=== PATIENT | female | born 1990 | race African-American/Black ===

== ENCOUNTER 2020-04-15 17:38 | Emergency (ER) | payer SELFPAY ==
[~2020-04-15] VITALS: Ht 172.7 cm; Wt 100.0 kg
--- NOTE | 2020-04-15 17:57 | NUR ---
PT BIB EMS FOR SI. PT STATES "I WANT TO . ERICH HAD THESE THOUGHTS FOR YEARS. THE EASIEST WAY TO GO WOULD TO CATCH COVID19. I FEEL LIKE PEOPLE ARE CONTROLLING ME" PROVIDER IN WITH PT AT THIS TIME. TO BE PLACED ON LEGAL HOLD
--- NOTE | 2020-04-15 18:35 | NUR ---
BREAK RN: PT REFUSING LABS AND REQUESTING FOOD. PT EDUCATED ON NEED FOR LABWORK BEFORE FOOD FOR FULL EVALUATION OF MEDICAL CONDITIONS AND THAT IT IS A REQUEST FOR ALL ED PATIENTS. PT AGREES TO LAB WORK. URINE SAMPLE COLLECTED AND WALKED TO LAB. LAB NOTIFIED. [facility], PT RESTING IN [facility]. PT REQUESTING HOME MEDS - BACLOFEN
[2020-04-15] MEDS ORDERED: OLANZAPINE 10 MG TABLET ONE (18:41)
[2020-04-15] MEDS ORDERED: CYCLOBENZAPRINE 10 MG TABLET ONE (18:41)
[2020-04-15] MEDS: OLANZAPINE 10 MG TABLET PO SCH (18:44)
[2020-04-15] MEDS ORDERED: CYCLOBENZAPRINE 10 MG TABLET PO ONE (19:00)
[2020-04-15 19:08] LABS: AMPHETAMINE SCREEN, URINE Positive (Negative); BARBITURATE SCREEN, URINE Negative (Negative); BENZODIAZEPINE SCREEN, URINE Positive (Negative); CANNABINOID SCREEN, URINE Negative (Negative); COCAINE SCREEN, URINE Negative (Negative); METHADONE SCREEN, URINE Negative (Negative); OPIATE SCREEN, URINE Negative (Negative)
[2020-04-15 19:11] LABS: BASOPHILS % (AUTO) 1 % (0-1); EOSINOPHILS % (AUTO) 2 % (1-7); LYMPHOCYTES % (AUTO) 21 % (22-44); MEAN CORPUSCULAR HEMOGLOBIN 30.5 pg (27.0-34.8); MEAN CORPUSCULAR HGB CONC 32.5 g/dL (32.4-35.8); MEAN PLATELET VOLUME 9.2 fL (7.4-10.4); MONOCYTES % (AUTO) 8 % (2-9); NEUTROPHILS % (AUTO) 67 % (42-75); PLATELET COUNT 279 x10^3/uL (130-400); RED CELL DISTRIBUTION WIDTH 14.6 % (9.6-15.2)
[2020-04-15 19:22] LABS: ANION GAP 9 mmol/L (5-15); CALCIUM 8.8 mg/dL (8.5-10.1); CHLORIDE 108 mmol/L (98-107); SALICYLATE LEVEL 1.9 mg/dL (2.8-20.0)
[2020-04-15 19:28] LABS: ALANINE AMINOTRANSFERASE 129 U/L (12-78); ALKALINE PHOSPHATASE 104 U/L (45-117); BILIRUBIN,TOTAL 0.8 mg/dL (0.2-1.0); CREATININE 0.96 mg/dL (0.55-1.02); TOTAL PROTEIN 8.4 g/dL (6.4-8.2)
[2020-04-15 19:30] LABS: MD NO
--- NOTE | 2020-04-15 20:20 | NUR ---
REPORT FROM SALLY SHARMA. PT CARE ASSUMED.
--- NOTE | 2020-04-15 21:35 | NUR ---
PT RESTING IN BED, DENIES ANY CURRENT NEEDS OR CONCERNS. WILL CONTINUE TO MONITOR.
--- NOTE | 2020-04-15 23:36 | NUR ---
PT REQUESTING FOOD. COFFEE CART CLOSED AT THIS TIME. PT EDUCATED ON EXPECTED TIME TO RECEIVE FOOD. VERBALIZES UNDERSTANDING, DENIES ANY FURTHER NEEDS AT THIS TIME, SITTER CONTINUES IN DIRECT LINE OF SIGHT.
--- NOTE | 2020-04-16 00:31 | NUR ---
PT PROVIDED WITH MEAL PER REQUEST. DENIES ANY FURTHER NEEDS OR CONCERNS AT THIS TIME, SITTER CONTINUES IN DIRECT LINE OF SIGHT.
--- NOTE | 2020-04-16 00:32 | NUR ---
TJ RN: Patient self pay. Packet faxed to [facility].
--- NOTE | 2020-04-16 02:00 | NUR ---
PT SLEEPING, NAD NOTED. SITTER CONTINUES IN DIRECT LINE OF SIGHT.
--- NOTE | 2020-04-16 05:44 | NUR ---
PT SLEEPING SOUNDLY, NAD NOTED. SITTER CONTINUES IN DIRECT LINE OF SIGHT.
--- NOTE | 2020-04-16 06:58 | NUR ---
BEDSIDE REPORT RECEIVED FROM REGINA ZAVALA
--- NOTE | 2020-04-16 07:02 | NUR ---
PT SUPINE ON GURNEY WITH EYES CLOSED. RESTING COMFORTABLY. PT DENIES ANY NEEDS AT THIS TIME. SAFETY V[place]LEGAS DOWN AND 1:1 SITTER WITHIN VIEW. WILL CONTINUE TO MONITOR.
[2020-04-16] MEDS: OLANZAPINE 10 MG TABLET PO SCH (09:00)
--- NOTE | 2020-04-16 09:01 | NUR ---
PT SUPINE ON GURNEY AND PROVIDED BREAKFAST TRAY. PT UP TO BATHROOM WITH THIS RN. PT DENIES ANY NEEDS AT THIS TIME. SAFETY VILLEGAS DOWN AND SITTER IN VIEW. WILL CONTINUE TO MONITOR.
[2020-04-16] MEDS ORDERED: OLANZAPINE 10 MG TABLET ONE (09:49)
--- NOTE | 2020-04-16 10:05 | NUR ---
PT SUPINE ON GURNEY WITH EYES CLOSED RESTING. PT DENIES ANY NEEDS AT THIS TIME. SAFETY VILLEGAS DOWN AND SITTER IN VIEW. WILL CONTINUE TO MONITOR.
--- NOTE | 2020-04-16 10:48 | NUR ---
REPORT GIVEN TO MK ZAVALA
--- NOTE | 2020-04-16 12:12 | NUR ---
PT SLEEPIN EVEN AND UNLABORED RESPIRATIONS, SITTER OUT SIDE FOR FOR SAFETY WATCH.
--- NOTE | 2020-04-16 13:00 | NUR ---
PT CONTINUES TO SLEEP, EVEN UNLORED RESPIRATIONS. SITTER OUTSIDE OF ROOM FOR SAFETY.
--- NOTE | 2020-04-16 16:48 | NUR ---
PT AWAKE ATE 2 LUNCH TRAYS. ALL NEEDS MET AT THIS TIME. SITTER AT BEDSIDE.
--- NOTE | 2020-04-16 17:50 | NUR ---
DINNER TRAY PROVIDED.
--- NOTE | 2020-04-16 18:59 | NUR ---
PT MOSTLY SLEEPING, NAD NOTED, EVEN AND UNLABORED RESPIRATIONS. SITTER AT BEDSIDE.
--- NOTE | 2020-04-16 22:41 | NUR ---
RESTING ON GURNEY, SLEEPING INTERMITTENLTY, EVEN UNLABORED RESPIRTIONS. SITTER AT BEDSIDE.
--- NOTE | 2020-04-16 23:09 | NUR ---
REPORT TO HAYDE ZAVALA.
--- NOTE | 2020-04-16 23:15 | NUR ---
Report received from SALLY Hinton. This RN to assume care.
--- NOTE | 2020-04-17 00:08 | NUR ---
Patient sleeping in [facility]. Respirations even and unlabored. Room secured, belongings locked in cabinet. Sitter outside.
--- NOTE | 2020-04-17 01:13 | NUR ---
Report to SALLY Bauer. Patient care transferred.
--- NOTE | 2020-04-17 06:00 | NUR ---
PT RESTING IN BED, PT IN SI SECURED ROOM WITH SITTER AT THE DOOR
--- NOTE | 2020-04-17 06:55 | NUR ---
REPORT TO BECKY ZAVALA
--- NOTE | 2020-04-17 06:56 | NUR ---
REPORT FROM MIKAYLA
--- NOTE | 2020-04-17 08:31 | NUR ---
PT RESTING, SITTER PRESENT
[2020-04-17] MEDS: OLANZAPINE 10 MG TABLET PO SCH (09:00)
--- NOTE | 2020-04-17 09:00 | NUR ---
MEAL TRAY GIVEN
[2020-04-17] MEDS ORDERED: OLANZAPINE 10 MG TABLET ONE (09:31)
--- NOTE | 2020-04-17 09:44 | NUR ---
PT REFUSING TO TRANSFER TO HOSPITAL BED FOR COMFORT. PT RESTING, NO OTHER NEEDS. SITTER PRESENT
--- NOTE | 2020-04-17 10:59 | NUR ---
PT RESTING, SITTER PRESENT
[2020-04-17 12:34] VITALS: BP 135/82
--- NOTE | 2020-04-17 12:39 | NUR ---
PT GIVEN MEAL TRAY.
--- NOTE | 2020-04-17 13:07 | NUR ---
CORI W [facility] CARE STAFF
== END 2020-04-17 13:13 | disposition home or self-care (01) ==
LOC: ED 04-16 00:26
DX: R45.851 Suicidal ideations (principal); F15.10 Other stimulant abuse, uncomplicated; R94.5 Abnormal results of liver function studies; R00.0 Tachycardia, unspecified; F32.9 Major depressive disorder, single episode, unspecified; Z21 Asymptomatic human immunodeficiency virus [HIV] infection status
CPT/HCPCS: 36415; 80053; 80307; 84703; 85025; 99285; 99406